=== PATIENT | female | born 1960 | race Caucasian/White ===

== ENCOUNTER 2016-07-29 08:46 | Day surgery (SDC) | payer BC ==
[~2016-07-29] VITALS: Ht 175.3 cm; Wt 99.0 kg
[2016-07-29 09:40] VITALS: Ht 175.3 cm; Wt 99.0 kg
[2016-07-29] MEDS ORDERED: ALBUTEROL (09:47)
[2016-07-29] MEDS ORDERED: DICLOFENAC (09:47)
[2016-07-29] MEDS ORDERED: OMEPRAZOLE (09:47)
[2016-07-29] MEDS ORDERED: ADVAIR (09:47)
[2016-07-29] MEDS ORDERED: RANITIDINE (09:47)
[2016-07-29] MEDS ORDERED: LIDOCAINE 2% (SDV) 5 ML INJ ONE (10:34)
[2016-07-29] MEDS ORDERED: PROPOFOL 40 ML ONE (10:34)
[2016-07-29 11:21] VITALS: BP 115/76; PULSE 80; RESP 18
[2016-07-29 12:00] VITALS: BP 116/67; RESP 20
--- NOTE | 2016-07-29 15:00 | GILP ---
DATE OF PROCEDURE: PROCEDURE: EGD with biopsy and colonoscopy. INDICATION: A 56-year-old female undergoing this procedure for epigastric pain and colon cancer scr eening. The risks of the procedure, related and unrelated complications, anesthetic risk explained and informed consent was obtained. DESCRIPTION OF PROCEDURE: The patient was brought to the GI lab, sedated by the anesthesiologist. A fter optimal sedation scope was passed with much ease into esophagus which was grossly within normal limits. Z line was at 39 cm. Stomach mucosa revealed gastritis, 3 to 4 biopsies obtained to rule out H. pylori infection. Duodenal mucosa revealed a flat mucosa. Ampulla was much more prominent th an the normal, 2 to 3 biopsies obtained to rule out celiac disease. Retroversion done, no growth wa s seen. Scope was straightened out and removed with good patient tolerance. IMPRESSION: 1. Normal esophagus. 2. Normal Z-line at 39 cm. 3. Gastritis. 4. Normal ampulla. 5. Normal duodenum except for the flat villi. PLAN: Review histopathology. COLONOSCOPY REPORT: The patient was turned around, scope was passed with much ease into the rectum, advanced through sigmoid, descending, transverse colon all the way into cecum. Appendiceal orifice identified. The rest of the colon was normal. While coming out, mucosa thoroughly inspected. There was a puddle of opaque liquid in the descendin g colon. Grossly it appeared normal. There was an AVM identified, 1 cm in diameter in the sigmoid c olon. The patient also had a small hemorrhoid. 1. AVM in the sigmoid to descending colon, 1 cm in diameter. 2. Small hemorrhoids. 3. Negative all the way into cecum. 4. Preparation was good to adequate. PLAN: To stay on high fiber diet. Dictated By: MICHAEL MOSQUEDA/LOYDA Conf#: [id number] DID#: [id number]
== END 2016-07-29 13:00 | disposition home or self-care (01) ==
LOC: GIL 08:46
PROVIDERS: ATTEND Internal Medicine Gastroenterology
DX: Z12.11 Encounter for screening for malignant neoplasm of colon (principal); K29.70 Gastritis, unspecified, without bleeding; K64.9 Unspecified hemorrhoids; J45.909 Unspecified asthma, uncomplicated
CPT/HCPCS: 88305; 88312